=== PATIENT | male | born 1955 | race American Indian/Alaskan Native ===

== ENCOUNTER 2018-10-18 12:47 | Day surgery (SDC) | payer BC ==
--- NOTE | 2018-10-18 07:14 | Anesthesia Consultation ---
Anesthesia Consult and Med Hx Date of service: 10/18/18 - Airway Anesthetic Teeth Evaluation: Poor, Chipped ROM Head & Neck: Adequate Mental/Hyoid Distance: Adequate Mallampati Class: Class I Intubation Access Assessment: Good - Pulmonary Exam CTA: Yes - Cardiac Exam Cardiac Exam: RRR - Pre-Operative Health Status ASA Pre-Surgery Classification: ASA2 Proposed Anesthetic Plan: MAC
[~2018-10-18 12:47] MED LIST: NACL 0.9% 1000 ML 1,000 ML IV SCH
[2018-10-18] MEDS ORDERED: WATER FOR IRRIG STERILE ONE (15:29)
[2018-10-18] MEDS ORDERED: WATER FOR IRRIG STERILE IR ONE (15:29)
[2018-10-18] MEDS ORDERED: VERSED ONE (15:33)
[2018-10-18] MEDS ORDERED: DIPRIVAN 10 MG/ML IV ONE ×2 (15:34)
--- NOTE | 2018-10-18 15:35 | Anesthesia Day of Surgery ---
Anesthesia Day of Surgery - Day of Surgery Patient Examined: Yes Patient H&P Reviewed: Yes Patient is NPO: Yes
--- NOTE | 2018-10-18 16:13 | Operative Report ---
Operative Report Operative Report: Date of procedure: 11/28/2016 Procedure: Colonoscopy . Attending physician: Sam Oconnor MD Robotics Engineer: Sam Oconnor MD Indication: Patient is a 63-year-old male who presents for colonoscopy because of personal history of recurrent sigmoid volvulus. Patient also lately has had constipation and anemia. Patient is being referred for possible resection of the left colon because of the sigmoid volvulus that is recurrent. A colonoscopy therefore now is done to evaluate patient regarding possibility of colon polyps or colorectal cancer so that treament may be directed based on the findings. A colonoscopy serves to evaluate patient so that treatment may be directed based on the findings. Consent: Informed consent was obtained after advising the patient and family regarding nature of this procedure, its indications, potential benefits as well as possible complications including but not limited to bleeding perforation and adverse reaction to medication, infection as well as other cardiopulmonary complications. An informed written and verbal consent was then obtained after due opportunity was provided for questions and answers. Monitoring: Patient was monitored continuously with pulse oximetry and electrocardiographic recordings as well as blood pressure recordings. Vital signs remained stable throughout this procedure with no untoward events. Preoperative assessment: Patient was assessed immediately prior to this procedure for capacity to tolerate monitored anesthesia care and moderate sedation as well as general anesthesia. Patient's ASA classification is 2, Mallampati class is 2, Hyomental distance is 3. Instrument: XillianTVn video colonoscope Medications: Propofol given intravenously in divided doses. For details please refer to anesthesia records. Description of procedure: Patient was placed in the left lateral decubitus position after achieving sedation, a digital rectal examination was performed following which the colonoscope was introduced into the anal verge and advanced to the cecum which was identified by the cecal valve, the appendiceal orifice, as well as by the cecal strap and direct transillumination. The colonoscope was subsequently withdrawn with careful inspection of all mucosal surfaces. Patient tolerated this procedure well and was subsequently taken to the recovery room. The following findings were noted. Findings: The patient had a long redundant and tortuous colon. There were no mucosal abnormalities seen except for a few diverticula.. On the retroflex view at the anal verge, patient had internal hemorrhoids. Impression: Tortuous colon. Diverticular disease of the colon. Internal hemorrhoids. Plan:High-fiber diet. Proceed with planned resection of the colon Patient may benefit from hemorrhoidal band ligation.
--- NOTE | 2018-10-18 16:13 | Discharge Summary ---
Short Stay Discharge Plan Activity: advance as tolerated Weight Bearing Status: Weight Bear as Tolerated Diet: regular Follow up with: RAMON DOTY MD [Primary Care Provider] - 7 Days
[2018-10-18 16:47] VITALS: BP 103/72
== END 2018-10-18 12:48 | disposition home or self-care (01) ==
LOC: GIO 12:47
PROVIDERS: ATTEND Internal Medicine Gastroenterology
DX: K57.30 Diverticulosis of large intestine without perforation or abscess without bleeding (principal); K64.8 Other hemorrhoids; K56.2 Volvulus; D64.9 Anemia, unspecified; K59.00 Constipation, unspecified; Z87.891 Personal history of nicotine dependence
CPT/HCPCS: 45378; J2250; J2704; J7030